=== PATIENT | male | born 1980 | race Caucasian/White ===

== ENCOUNTER 2022-10-27 22:48 | Emergency (ER) | payer BC, OTHER ==
[2022-10-27] MEDS ORDERED: Lidocaine 1% 5 ML VIAL INJECT ONE (22:59)
[2022-10-27] MEDS ORDERED: Lidocaine 1% 5 ML VIAL ONE (23:19)
[2022-10-27] MEDS ORDERED: Bacitracin Oint 1 GM U/D Packet TOP ONE (23:28)
[2022-10-27 23:31] VITALS: PULSE 77
[2022-10-27 23:48] VITALS: BP 128/82
== END 2022-10-27 23:45 | disposition home or self-care (01) ==
LOC: LL.ED 22:48
DX: S60.450A Superficial foreign body of right index finger, initial encounter (principal); S60.351A Superficial foreign body of right thumb, initial encounter; I10 Essential (primary) hypertension; Z79.899 Other long term (current) drug therapy; W45.8XXA Other foreign body or object entering through skin, initial encounter
CPT/HCPCS: 64450; 99282; J3490